=== PATIENT | female | born 1945 | race Hispanic/Latino ===

== ENCOUNTER 2018-09-17 16:06 | Inpatient (IN) | payer MEDICARE ==
[~2018-09-17] VITALS: Ht 162.6 cm; Wt 72.7 kg
[2018-09-17] MEDS ORDERED: SODIUM CHLORIDE 0.9% 1000ML 1,000 ML IV ONE ×4 (16:35→18:50)
[2018-09-17 16:43] LABS: BASOPHILS % (AUTO) 0.1 % (0.0-5.0); HEMATOCRIT 40.1 % (36-48); LYMPHOCYTES % (AUTO) 13.1 % (21.0-51.0); MEAN CORPUSCULAR HEMOGLOBIN 29.8 pg (27.0-33.0); MEAN CORPUSCULAR HGB CONC 33.8 g/dL (32.0-36.0); MEAN CORPUSCULAR VOLUME 88.2 fL (79-99); MONOCYTES % (AUTO) 9.2 % (3.0-13.0); NEUTROPHILS % (AUTO) 77.6 % (40.0-77.0); PLATELET COUNT (AUTO) 329 K/uL (130-400); RED BLOOD CELL COUNT(AUTO) 4.55 MIL/uL (4.00-5.50); RED CELL DISTRIBUTION WIDTH 13.1 % (11.0-15.5); WHITE BLOOD COUNT (AUTO) 11.4 K/uL (4.8-10.8)
[2018-09-17] MEDS ORDERED: SODIUM CHLORIDE 0.9% 100 ML IV ONE (16:48)
[2018-09-17] MEDS ORDERED: DILTIAZEM HCL 125 MG/25 ML VIAL IV ONE (16:48)
[2018-09-17] MEDS ORDERED: IPRATROPIUM/ALBUTEROL SULFATE 3 ML SOLUTION IH ONE (16:51)
[2018-09-17] MEDS ORDERED: CEFTRIAXONE SODIUM 1 GM ONE (16:52)
[2018-09-17] MEDS ORDERED: AZITHROMYCIN 500MG+NS 250ML 250 ML IV ONE (16:52)
[2018-09-17 16:53] LABS: CREATININE 1.3 mg/dL (0.5-1.5); POTASSIUM 5.4 mmol/L (3.5-5.1)
[2018-09-17] MEDS ORDERED: ACETAMINOPHEN 650 MG SUPPOSITORY RC ONE (16:53)
[2018-09-17 16:57] LABS: INR 1.38 (0.85-1.15); PROTHROMBIN TIME 14.4 SEC (9.6-11.6)
[2018-09-17 17:15] LABS: ALBUMIN 2.8 g/dL (3.5-5.0); BILIRUBIN,TOTAL 0.6 mg/dL (0.2-1.0); TOTAL PROTEIN, SERUM 8.1 g/dL (6.0-8.3); TROPONIN I 0.14 ng/mL (0.00-0.06)
[2018-09-17 17:15] LABS: ABG BASE EXCESS -1.5 mmol/L (-2.0-3.0); ABG OXYGEN SATURATION 93.4 % (95.0-99.0); ABG PCO2 30 mmHg (32-45)
[2018-09-17 17:37] LABS: BILIRUBIN,URINE Negative (NEGATIVE); COLOR,URINE Yellow (YELLOW); GLUCOSE, URINE (UA) Negative (NEGATIVE); KETONES,URINE Negative (NEGATIVE); LEUKOCYTE ESTERASE ,URINE Small (NEGATIVE); NITRATE,URINE Negative (NEGATIVE); OCCULT BLOOD,URINE Small (NEGATIVE); PROTEIN,URINE Negative (NEGATIVE)
[2018-09-17 17:43] LABS: APPEARANCE,URINE HAZY (CLEAR)
[2018-09-17] MEDS ORDERED: AMIODARONE HCL 50 MG/ML 3 ML VIAL ONE (17:52)
[2018-09-17] MEDS ORDERED: SODIUM CHLORIDE 0.9% 50 ML IV ONE (17:52)
[2018-09-17] MEDS ORDERED: AMIODARONE HCL 900 MG in DEXTROSE 5%-WATER 500 ML IV SCH (18:00)
[2018-09-17 18:03] LABS: AMORPHOUS SEDIMENT,UR Few /LPF (None Seen); BACTERIA,URINE Few /HPF (None Seen); RBC,URINE None Seen /HPF (0-1)
[2018-09-17] MEDS: SODIUM CHLORIDE 0.9% 1000ML 1,000 ML IV SCH (19:48)
[2018-09-17] MEDS: AZITHROMYCIN 500MG+NS 250ML 250 ML IV SCH (20:00)
[2018-09-17] MEDS ORDERED: ONDANSETRON HCL 4 MG/2 ML VIAL IV PRN (20:00)
[2018-09-17] MEDS: CEFTRIAXONE SODIUM 1 GM IV SCH (20:00)
[2018-09-17] MEDS ORDERED: ACETAMINOPHEN 325 MG TAB PO PRN (20:00)
[2018-09-17] MEDS: ENOXAPARIN SODIUM 30 MG/0.3 ML SQ SCH (21:00)
[2018-09-17] MEDS ORDERED: MORPHINE SULFATE 2 MG/ML 1ML SYG ONE (21:35)
[2018-09-17] MEDS: ALBUTEROL SULFATE 0.083% 2.5 MG/3 ML INH IH SCH (23:25)
[2018-09-18] VITALS (32 sets, daily range): BP systolic 101–142; BP diastolic 65–94
[2018-09-18] MEDS ORDERED: NITROGLYCERIN 0.4 MG SL TAB SL ONE (00:11)
[2018-09-18] MEDS ORDERED: SODIUM CHLORIDE 0.9% 1000ML 1,000 ML IV ONE (00:11)
[2018-09-18] MEDS ORDERED: FAMOTIDINE/PF 20 MG/2 ML VIAL IV ONE (00:12)
[2018-09-18] MEDS ORDERED: ENOXAPARIN SODIUM 30 MG/0.3 ML SQ ONE (00:12)
[2018-09-18] MEDS ORDERED: MORPHINE SULFATE 2 MG/ML 1ML SYG ONE (02:15)
[2018-09-18 06:35] LABS: BASOPHILS % (AUTO) 0.2 % (0.0-5.0); EOSINOPHILS % (AUTO) 0.2 % (0.0-8.0); HEMATOCRIT 32.1 % (36-48); LYMPHOCYTES % (AUTO) 14.3 % (21.0-51.0); MEAN CORPUSCULAR HEMOGLOBIN 29.4 pg (27.0-33.0); MEAN CORPUSCULAR HGB CONC 32.6 g/dL (32.0-36.0); MEAN CORPUSCULAR VOLUME 90.2 fL (79-99); MONOCYTES % (AUTO) 10.2 % (3.0-13.0); NEUTROPHILS % (AUTO) 75.1 % (40.0-77.0); NUCLEATED RED BLOOD CELLS 0.1 % (0.0-0.19); PLATELET COUNT (AUTO) 212 K/uL (130-400); RED BLOOD CELL COUNT(AUTO) 3.56 MIL/uL (4.00-5.50); RED CELL DISTRIBUTION WIDTH 13.4 % (11.0-15.5); WHITE BLOOD COUNT (AUTO) 8.2 K/uL (4.8-10.8)
[2018-09-18] MEDS ORDERED: IPRATROPIUM/ALBUTEROL SULFATE 3 ML SOLUTION IH ONE (06:42)
[2018-09-18] MEDS ORDERED: ALBUTEROL SULFATE 0.083% 2.5 MG/3 ML INH IH ONE (06:51)
[2018-09-18] MEDS: ALBUTEROL SULFATE 0.083% 2.5 MG/3 ML INH IH SCH ×4 (06:51→23:32)
[2018-09-18 07:14] LABS: CRP QUANTITATIVE 177.2 mg/L (0.00-9.0)
[2018-09-18] MEDS: FAMOTIDINE/PF 20 MG/2 ML VIAL IV SCH (09:00)
[2018-09-18] MEDS: ENOXAPARIN SODIUM 30 MG/0.3 ML SQ SCH ×2 (09:00→21:16)
--- NOTE | 2018-09-18 09:00 | NUR ---
PT HAS BEEN ADMITTED AND ON AMIO DRIP PRESCRIBED AND NO FAMILY AROUND TO OBTAIN DATABASE AND HISTORY. MEDS WERE OBTAINED FROM [facility] MEDICATION LIST.
[2018-09-18 09:22] LABS: MAGNESIUM 1.9 mg/dL (1.80-2.40); THYROID STIMULATING HORMONE 1.51 uIU/mL (0.36-3.74)
[2018-09-18] MEDS ORDERED: MAGNESIUM 2GM PREMIX 50ML 50 ML IV ONE (09:47)
[2018-09-18] MEDS ORDERED: TRAM50TA4 PO (11:56)
[2018-09-18] MEDS ORDERED: DIPH25 PO (11:56)
[2018-09-18] MEDS ORDERED: ACET1030H PO (11:56)
[2018-09-18] MEDS ORDERED: ESCI20TA PO (11:56)
[2018-09-18] MEDS ORDERED: MULT-1271 PO (11:56)
[2018-09-18] MEDS ORDERED: FURO20TA6 PO (11:56)
[2018-09-18] MEDS ORDERED: CLON0.5T12 PO (11:56)
[2018-09-18] MEDS ORDERED: FLEC100T3 PO (11:56)
[2018-09-18] MEDS ORDERED: POLY17PO4 PO (11:56)
[2018-09-18] MEDS ORDERED: FERS325 PO (11:56)
[2018-09-18] MEDS ORDERED: ATOR10 PO (11:56)
[2018-09-18] MEDS ORDERED: CLOP75TA32 PO (11:56)
[2018-09-18] MEDS ORDERED: BACL10TA PO (11:56)
[2018-09-18] MEDS ORDERED: PHEN30SP9 MM (11:56)
[2018-09-18] MEDS ORDERED: ASPI-988 PO (11:56)
[2018-09-18] MEDS ORDERED: ADV250 IH ×2 (11:56→15:33)
[2018-09-18] MEDS ORDERED: POTA20TA12 PO (11:56)
[2018-09-18] MEDS ORDERED: LISI-617 PO (11:56)
[2018-09-18] MEDS ORDERED: GABA-531 PO (11:56)
[2018-09-18] MEDS ORDERED: DILTIAZEM HCL 5 MG/ML 5 ML VIAL IVP PRN (12:00)
[2018-09-18] MEDS ORDERED: ACET325T51 PO (15:33)
[2018-09-18] MEDS ORDERED: LACT10SO9 PO (15:33)
[2018-09-18] MEDS ORDERED: SIME80TA12 PO (15:33)
[2018-09-18] MEDS ORDERED: LIDO1ADH48 TP (15:33)
[2018-09-18] MEDS ORDERED: FLUT16H NASAL (15:33)
[2018-09-18] MEDS ORDERED: DOCU-116 PO (15:33)
[2018-09-18] MEDS ORDERED: DICY20 PO (15:33)
[2018-09-18] MEDS ORDERED: BUDE0.5A3 IH (15:33)
[2018-09-18] MEDS ORDERED: ONDA4TAB4 PO (15:33)
[2018-09-18] MEDS ORDERED: ALBU2.5V2 IH (15:33)
[2018-09-18] MEDS ORDERED: NITR0.4T50 SL (15:33)
[2018-09-18] MEDS ORDERED: BISA10S PR (15:33)
[2018-09-18] MEDS: SODIUM CHLORIDE 0.9% 1000ML 1,000 ML IV SCH ×2 (15:48→20:04)
[2018-09-18] MEDS: DILTIAZEM HCL 125 MG/25 ML 125 MG in SODIUM CHLORIDE 0.9% 100 ML IV PRN (16:49)
[2018-09-18] MEDS: MORPHINE SULFATE 2 MG/ML 1ML SYG IV PRN (18:34)
--- NOTE | 2018-09-18 19:33 | NUR ---
ASSESSMENT REPORT RECEIVED FROM MUSTAPHA, PATIENT AWAKE , ALERT ORIENTED X 1, WEAK X 4, CONFUSED AND SUSPICIOUS, THIRSTY AND FREQUENT COUGH, O2 3L NC, GABRIEL 3 MM, PEDAL PULSES WEAK, CARDIZEM A 5 ML/HR INCREASED TO 10 ML/HR, NS AT 100 ML/HR. ASSESSMENT COMPLETED. CALL DARNELL IN REACH.
[2018-09-18] MEDS: AZITHROMYCIN 500MG+NS 250ML 250 ML IV SCH (20:03)
[2018-09-18] MEDS: CEFTRIAXONE SODIUM 1 GM IV SCH (20:04)
[2018-09-18] MEDS: CITALOPRAM 20 MG TABLET PO SCH (21:15)
[2018-09-18] MEDS ORDERED: DILTIAZEM HCL 5 MG/ML 5 ML VIAL IVP SCH (21:15)
[2018-09-18] MEDS ORDERED: PHARMACY COMMUNICATION MISC SCH (21:15)
--- NOTE | 2018-09-18 22:15 | NUR ---
DR Meaghan STEPHENS AT BEDSIDE. NEW ORDERS FOR CARDIZEM 10 MG IV BOLUS GIVEN, DC AMIODARONE, DIURETICS, AND TO INCREASE CARDIZEM TO 15 MG/HR
[2018-09-18] MEDS: CLONAZEPAM 0.5 MG TABLET PO PRN (23:14)
[2018-09-19] VITALS (26 sets, daily range): BP systolic 90–152; BP diastolic 52–93
[2018-09-19] MEDS: GUAIFENESIN-CODEINE 5 ML SYRUP PO PRN ×2 (00:28→03:49)
--- NOTE | 2018-09-19 00:28 | NUR ---
ROBITUSSIN AC GIVEN FOR FREQUENT COUGH PER ORDER SEE EMAR
[2018-09-19] MEDS: DILTIAZEM HCL 125 MG/25 ML 125 MG in SODIUM CHLORIDE 0.9% 100 ML IV PRN (00:57)
[2018-09-19] MEDS ORDERED: PHARMACY COMMUNICATION MISC SCH ×2 (07:30→09:00)
--- NOTE | 2018-09-19 07:43 | NUR ---
DR SNOW MAKES BEDSIDE ROUNDS- ORDERS RECEIVED
[2018-09-19 08:17] LABS: BASOPHILS % (AUTO) 0.3 % (0.0-5.0); HEMATOCRIT 29.9 % (36-48); LYMPHOCYTES % (AUTO) 16.7 % (21.0-51.0); MEAN CORPUSCULAR HEMOGLOBIN 29.2 pg (27.0-33.0); MEAN CORPUSCULAR HGB CONC 32.8 g/dL (32.0-36.0); MEAN CORPUSCULAR VOLUME 89.1 fL (79-99); MONOCYTES % (AUTO) 8.3 % (3.0-13.0); NEUTROPHILS % (AUTO) 73.7 % (40.0-77.0); PLATELET COUNT (AUTO) 192 K/uL (130-400); RED BLOOD CELL COUNT(AUTO) 3.35 MIL/uL (4.00-5.50); RED CELL DISTRIBUTION WIDTH 13.1 % (11.0-15.5); WHITE BLOOD COUNT (AUTO) 7.6 K/uL (4.8-10.8)
[2018-09-19] MEDS ORDERED: FLECAINIDE ACETATE 100 MG TABLET PO PRN (08:30)
[2018-09-19 08:36] LABS: CREATININE 0.7 mg/dL (0.5-1.5); POTASSIUM 3.1 mmol/L (3.5-5.1)
[2018-09-19] MEDS ORDERED: MEROPENEM 500 MG VIAL IVP SCH (08:45)
[2018-09-19] MEDS ORDERED: RENAL DOSE IV SCH (08:45)
[2018-09-19] MEDS: DILTIAZEM HCL 60 MG TABLET PO SCH ×4 (08:50→20:19)
[2018-09-19] MEDS: FAMOTIDINE/PF 20 MG/2 ML VIAL IV SCH (08:51)
[2018-09-19] MEDS: ENOXAPARIN SODIUM 30 MG/0.3 ML SQ SCH ×2 (08:52→09:00)
[2018-09-19] MEDS ORDERED: ZOSYN 3.375GM+NS 50ML 50 ML IV SCH (09:00)
--- NOTE | 2018-09-19 09:14 | NUR ---
PT REFUSES LOVENOX AND CARDIZEM PO. I HAVE EXPLAINED TO HER RATIONALE AND SIDE EFFECTS- SHE WILL NOT ALLOW ME TO GIVE HER THESE 2 MEDS. WILL LET MD KNOW ON ROUNDS. PT NON-COMPLIANT
--- NOTE | 2018-09-19 09:24 | NUR ---
DR ERNANDEZ INFORMED OF PATIENTS REFUSAL TO TAKE MEDS. ALSO INFORMED OF LOW POTASSIUM OF 3.1. ORDERS RECEIVED. 1ST DOSE OF ZOSYN IS INFUSING - I HAVE CLARIFIED ORDERS WITH PHARMACIST. I HAD SCANNED ZOSYN PRIOR TO ADMINISTRATION BUT IT DID NOT STORE IT. ORDER RE-ENTERED .
[2018-09-19] MEDS: ZOSYN 3.375GM+NS 50ML 50 ML IV SCH ×2 (09:26→17:48)
[2018-09-19] MEDS ORDERED: POTASSIUM CHLORIDE 20MEQ/100ML 100 ML IV PRN (09:30)
[2018-09-19] MEDS ORDERED: POTASSIUM CHLORIDE 20 MEQ ERTAB PO PRN (09:30)
[2018-09-19] MEDS ORDERED: LIDOCAINE HCL-MPF 1% 2ML VIAL IVP PRN (09:30)
[2018-09-19] MEDS: POTASSIUM CHLORIDE 10% ELIXIR 20 MEQ/15 ML UDCUP PO PRN (13:39)
--- NOTE | 2018-09-19 15:11 | NUR ---
NO ACUTE CHANGES NOTED-NO PAIN NOTED. HAS HAD VISITS BY HER DAUGHTER AND SON TODAY. REPOSITIONED . ORAL CARE DONE. DRESSING TO SACRUM DONE DIRECTED BY WOUND CARE TEAM (LAUREEN/PRADEEP)
--- NOTE | 2018-09-19 16:21 | NUR ---
PT GUARDIANTONIO SONI HERE TO VISIT- UPDATED ON CONDITION AND PLAN OF CARE
[2018-09-19] MEDS: CITALOPRAM 20 MG TABLET PO SCH (20:19)
[2018-09-19] MEDS: ATORVASTATIN CALCIUM 10 MG TABLET PO SCH (20:19)
[2018-09-19] MEDS: ACETAMINOPHEN 325 MG TAB PO PRN (20:20)
[2018-09-20] VITALS (18 sets, daily range): BP systolic 98–137; BP diastolic 54–83
[2018-09-20] MEDS: ZOSYN 3.375GM+NS 50ML 50 ML IV SCH ×3 (01:01→17:57)
[2018-09-20] MEDS: GUAIFENESIN-CODEINE 5 ML SYRUP PO PRN (02:52)
[2018-09-20] MEDS: DILTIAZEM HCL 60 MG TABLET PO SCH (02:52)
[2018-09-20 03:49] LABS: HEMATOCRIT 31.5 % (36-48); MEAN CORPUSCULAR HEMOGLOBIN 29.2 pg (27.0-33.0); MEAN CORPUSCULAR HGB CONC 32.8 g/dL (32.0-36.0); MEAN CORPUSCULAR VOLUME 88.8 fL (79-99); PLATELET COUNT (AUTO) 193 K/uL (130-400); RED BLOOD CELL COUNT(AUTO) 3.55 MIL/uL (4.00-5.50); RED CELL DISTRIBUTION WIDTH 13.1 % (11.0-15.5); WHITE BLOOD COUNT (AUTO) 7.8 K/uL (4.8-10.8)
[2018-09-20 04:03] LABS: CREATININE 0.7 mg/dL (0.5-1.5); MAGNESIUM 1.9 mg/dL (1.80-2.40); PHOSPHORUS 2.4 mg/dL (2.5-4.9); POTASSIUM 3.3 mmol/L (3.5-5.1)
[2018-09-20] MEDS: ACETAMINOPHEN 325 MG TAB PO PRN ×2 (05:31→14:14)
[2018-09-20] MEDS: POTASSIUM CHLORIDE 10% ELIXIR 20 MEQ/15 ML UDCUP PO PRN ×3 (05:32→14:15)
--- NOTE | 2018-09-20 06:14 | NUR ---
PATIENT WITH FREQUENT COUGH REQUESTING BREATHING TREATMENT, R.T NOTIFIED.
[2018-09-20] MEDS: IPRATROPIUM 0.5 MG/2.5 ML INH IH PRN ×3 (06:21→23:14)
[2018-09-20] MEDS: FAMOTIDINE/PF 20 MG/2 ML VIAL IV SCH (08:52)
[2018-09-20] MEDS: NEUTRA-PHOS PACKET 1 EACH PO SCH ×4 (08:53→20:14)
[2018-09-20] MEDS: ENOXAPARIN SODIUM 30 MG/0.3 ML SQ SCH (08:54)
[2018-09-20] MEDS ORDERED: DILTIAZEM HCL 180 MG CAP.SR.24H PO SCH (09:00)
[2018-09-20] MEDS: DILTIAZEM HCL 120 MG CAP.SR.24H PO SCH (09:00)
[2018-09-20] MEDS ORDERED: SODIUM CHLORIDE 3% FOR INHALATION 4 ML/AMP VIAL.NEB IH ONE ×3 (10:40→22:52)
[2018-09-20] MEDS ORDERED: MAGNESIUM 2GM PREMIX 50ML 50 ML IV ONE (14:13)
[2018-09-20] MEDS ORDERED: MAGNESIUM SULFATE 2 GM in SODIUM CHLORIDE 0.9% 50 ML IV SCH (14:15)
[2018-09-20] MEDS ORDERED: MAGNESIUM 2GM PREMIX 50ML 50 ML IV PRN (14:30)
--- NOTE | 2018-09-20 14:30 | NUR ---
REPORT GIVEN TO BENJAMIN LARA AND PATIENT MOVED TO RM 206 AT THIS TIME
--- NOTE | 2018-09-20 16:01 | NUR ---
DC PLAN PATIENT TRANSFERRED OUT OF ICU. PATIENT FROM [facility]. ATTEMPTED TO CALL EMERGENCY CONTACT, VIRI SONI AT [phone], NO ANSWER. CM TO REVISIT. CD Addendum: 09/20/18 at 1602 by FABY GIBOSN CM Amended: Links added.
[2018-09-20] MEDS: MORPHINE SULFATE 2 MG/ML 1ML SYG IV PRN ×2 (19:43→23:28)
[2018-09-20] MEDS: ATORVASTATIN CALCIUM 10 MG TABLET PO SCH (20:13)
[2018-09-20] MEDS: CITALOPRAM 20 MG TABLET PO SCH (20:13)
[2018-09-21] MEDS: ZOSYN 3.375GM+NS 50ML 50 ML IV SCH ×3 (01:21→19:45)
[2018-09-21 03:00] VITALS: BP 131/88
[2018-09-21 03:52] LABS: HEMATOCRIT 30.9 % (36-48); MEAN CORPUSCULAR HEMOGLOBIN 29.2 pg (27.0-33.0); MEAN CORPUSCULAR HGB CONC 32.9 g/dL (32.0-36.0); MEAN CORPUSCULAR VOLUME 88.6 fL (79-99); PLATELET COUNT (AUTO) 209 K/uL (130-400); RED BLOOD CELL COUNT(AUTO) 3.49 MIL/uL (4.00-5.50); RED CELL DISTRIBUTION WIDTH 13.5 % (11.0-15.5); WHITE BLOOD COUNT (AUTO) 7.3 K/uL (4.8-10.8)
[2018-09-21 04:04] LABS: ALBUMIN 1.7 g/dL (3.5-5.0); CREATININE 0.6 mg/dL (0.5-1.5); MAGNESIUM 1.8 mg/dL (1.80-2.40); PHOSPHORUS 2.8 mg/dL (2.5-4.9); POTASSIUM 3.6 mmol/L (3.5-5.1)
[2018-09-21 04:06] LABS: B-TYPE NATRIURETIC PEPTIDE 366 pg/mL (0-100)
[2018-09-21] MEDS: MORPHINE SULFATE 2 MG/ML 1ML SYG IV PRN ×3 (05:23→21:25)
[2018-09-21] MEDS: CLONAZEPAM 0.5 MG TABLET PO PRN (05:39)
[2018-09-21] MEDS ORDERED: SODIUM CHLORIDE 3% FOR INHALATION 4 ML/AMP VIAL.NEB IH ONE (06:09)
[2018-09-21] MEDS: IPRATROPIUM 0.5 MG/2.5 ML INH IH PRN (06:17)
[2018-09-21 07:11] VITALS: BP 139/95
--- NOTE | 2018-09-21 09:00 | NUR ---
TEACHING: PT NOT APPROPRIATE TO CONVERSATION - TALKING TO HERSELF WHEN NURSE ENTERED ROOM ABOUT THINGS THAT DO NOT APPLY TO HOSPITALIZATION - QUESTION ORIENTATION. DEFIANT TO ALL CARE AND ANGRY AT STAFF NO MATTER HOW WE TRY TO HELP HER. TEACHING ATTEMPTS FAIL.
--- NOTE | 2018-09-21 09:00 | NUR ---
ASSESS: RESISTANT TO CARE - WILL NOT LET NURSE CHECK FEET OR TAKE OFF SOCKS, WILL NOT LET NURSE CHECK PUPILS - MOANS AND GROANS WHEN TOUCHED BUT DOES NOT SPECIFY WHERE THE PAIN IS OR THE SCALE SHE WOULD RATE IT. YELLS OUT WHEN ASSISTED TO TURN TO CHECK DIAPER OR SKIN ON BACK. REFUSES LOVENOX, REFUSES MEGACE AND ONLY TOOK CARDIZEM BC NURSE TOLD HER HER HR WAS FAST AND IT WOULD HELP HER HEART.
[2018-09-21] MEDS: MEGESTROL 400 MG/10 ML UDCUP PO SCH ×2 (10:30→10:31)
[2018-09-21] MEDS: ENOXAPARIN SODIUM 30 MG/0.3 ML SQ SCH ×2 (10:30→10:32)
[2018-09-21] MEDS: NEUTRA-PHOS PACKET 1 EACH PO SCH ×2 (10:31→15:16)
[2018-09-21] MEDS: FAMOTIDINE/PF 20 MG/2 ML VIAL IV SCH (10:31)
[2018-09-21] MEDS: DILTIAZEM HCL 120 MG CAP.SR.24H PO SCH (10:31)
[2018-09-21 10:55] VITALS: BP 149/96
[2018-09-21] MEDS: IPRATROPIUM 0.5 MG/2.5 ML INH IH SCH ×3 (11:13→23:12)
--- NOTE | 2018-09-21 12:35 | NUR ---
Nutrition Intervention: Nutrition screen due to Alb 1.7. Pt. admitted with Dx of Sepsis, Pneumonia, A. Fib with RVR. Pt. on Heart healthy diet with good p.o. intake this morning, as per nursing and EMR. Per EMR, pt's p.o. intake varies(25-75%). Pt. on appetite stimulant Megace. Labs reviewed(Alb 1.7). LBM: 09/21/18. SR-14, loose. BMI: 28.2, normal for age. Recommendations: 1) Continue current diet. 2) Rec. Ensure Enlive supp. BID with B'fast and dinner meals. 3) Continue to monitor pt's nutritional status. 4) Consult RD as nutrition concerns arise. Addendum: 09/21/18 at [address] Amended: Links added.
[2018-09-21] MEDS ORDERED: NEUTRA-PHOS PACKET 1 EACH ONE (15:15)
[2018-09-21 16:00] VITALS: BP 153/84
[2018-09-21 19:27] VITALS: BP 148/78
[2018-09-21] MEDS: ATORVASTATIN CALCIUM 10 MG TABLET PO SCH (21:23)
[2018-09-21] MEDS: CITALOPRAM 20 MG TABLET PO SCH (21:23)
[2018-09-21 23:00] VITALS: BP 152/85
[2018-09-22] MEDS: ZOSYN 3.375GM+NS 50ML 50 ML IV SCH ×3 (02:26→17:01)
[2018-09-22 03:00] VITALS: BP_SYST 145; BP_SYST 152; BP_DIAS 70; BP_DIAS 85
[2018-09-22] MEDS: MORPHINE SULFATE 2 MG/ML 1ML SYG IV PRN (04:48)
[2018-09-22] MEDS: IPRATROPIUM 0.5 MG/2.5 ML INH IH SCH ×4 (04:58→23:23)
[2018-09-22 05:32] LABS: HEMATOCRIT 33.8 % (36-48); MEAN CORPUSCULAR HEMOGLOBIN 28.9 pg (27.0-33.0); MEAN CORPUSCULAR HGB CONC 31.7 g/dL (32.0-36.0); MEAN CORPUSCULAR VOLUME 91.2 fL (79-99); NUCLEATED RED BLOOD CELLS 0.1 % (0.0-0.19); PLATELET COUNT (AUTO) 226 K/uL (130-400); RED BLOOD CELL COUNT(AUTO) 3.71 MIL/uL (4.00-5.50); RED CELL DISTRIBUTION WIDTH 13.6 % (11.0-15.5); WHITE BLOOD COUNT (AUTO) 5.8 K/uL (4.8-10.8)
[2018-09-22 05:40] LABS: CREATININE 0.8 mg/dL (0.5-1.5); MAGNESIUM 2.1 mg/dL (1.80-2.40); POTASSIUM 3.4 mmol/L (3.5-5.1)
[2018-09-22 05:49] LABS: BAND NEUTROPHILS % (MANUAL) 2 % (0-2); EOSINOPHILS % (MANUAL) 4 % (1-6); LYMPHOCYTES % (MANUAL) 29 % (22-44); MONOCYTES % (MANUAL) 5 % (2-9); SEGMENTED NEUTROPHILS % 60 % (40-70)
[2018-09-22 05:50] LABS: MAN.DIFF COMMENT-IMPRESSION MANUAL DIFFERENTIAL; PLATELET MORPHOLOGY COMMENT ADEQUATE
[2018-09-22 07:46] VITALS: BP 129/59
[2018-09-22] MEDS: FAMOTIDINE/PF 20 MG/2 ML VIAL IV SCH (09:59)
[2018-09-22] MEDS: DILTIAZEM HCL 120 MG CAP.SR.24H PO SCH (09:59)
[2018-09-22 11:14] VITALS: BP 142/83
[2018-09-22] MEDS ORDERED: METHYLPREDNISOLONE SOD SUCC 125MG/2ML VIAL IVP SCH (12:30)
[2018-09-22] MEDS ORDERED: METHYLPREDNISOLONE SOD SUCC 125MG/2ML VIAL IM SCH (12:30)
[2018-09-22] MEDS: FUROSEMIDE 10 MG/ML 2ML VIAL IV SCH (13:19)
[2018-09-22] MEDS ORDERED: MORPHINE SULFATE 2 MG/ML 1ML SYG IV PRN (16:00)
[2018-09-22 16:05] VITALS: BP 125/66
[2018-09-22 19:00] VITALS: BP 120/81
[2018-09-22] MEDS: CITALOPRAM 20 MG TABLET PO SCH (20:58)
[2018-09-22] MEDS: ATORVASTATIN CALCIUM 10 MG TABLET PO SCH (20:58)
[2018-09-22 23:00] VITALS: BP 145/80
[2018-09-23] MEDS: CLONAZEPAM 0.5 MG TABLET PO PRN (01:10)
[2018-09-23] MEDS: FUROSEMIDE 10 MG/ML 2ML VIAL IV SCH ×2 (01:10→09:26)
[2018-09-23] MEDS: POTASSIUM CHLORIDE 10% ELIXIR 20 MEQ/15 ML UDCUP PO PRN (01:11)
[2018-09-23] MEDS: ZOSYN 3.375GM+NS 50ML 50 ML IV SCH ×3 (01:11→17:30)
[2018-09-23 03:00] VITALS: BP 148/77
[2018-09-23] MEDS: IPRATROPIUM 0.5 MG/2.5 ML INH IH SCH ×3 (06:25→17:52)
[2018-09-23 06:45] LABS: BASOPHILS % (AUTO) 0.4 % (0.0-5.0); EOSINOPHILS % (AUTO) 2.5 % (0.0-8.0); HEMATOCRIT 33.8 % (36-48); LYMPHOCYTES % (AUTO) 28.6 % (21.0-51.0); MEAN CORPUSCULAR HEMOGLOBIN 29.1 pg (27.0-33.0); MEAN CORPUSCULAR HGB CONC 32.6 g/dL (32.0-36.0); MEAN CORPUSCULAR VOLUME 89.3 fL (79-99); MONOCYTES % (AUTO) 10.4 % (3.0-13.0); NEUTROPHILS % (AUTO) 58.1 % (40.0-77.0); PLATELET COUNT (AUTO) 272 K/uL (130-400); RED BLOOD CELL COUNT(AUTO) 3.78 MIL/uL (4.00-5.50); RED CELL DISTRIBUTION WIDTH 13.2 % (11.0-15.5); WHITE BLOOD COUNT (AUTO) 5.7 K/uL (4.8-10.8)
[2018-09-23 07:01] LABS: CREATININE 0.8 mg/dL (0.5-1.5); POTASSIUM 3.5 mmol/L (3.5-5.1)
[2018-09-23 07:08] VITALS: BP 133/86
[2018-09-23] MEDS: DILTIAZEM HCL 120 MG CAP.SR.24H PO SCH (09:26)
[2018-09-23] MEDS: ENOXAPARIN SODIUM 30 MG/0.3 ML SQ SCH (09:26)
[2018-09-23] MEDS: FAMOTIDINE/PF 20 MG/2 ML VIAL IV SCH (09:26)
[2018-09-23] MEDS: MEGESTROL 400 MG/10 ML UDCUP PO SCH (09:26)
[2018-09-23 11:12] VITALS: BP 126/67
[2018-09-23 15:55] VITALS: BP 111/53
--- NOTE | 2018-09-23 17:41 | NUR ---
CALLED REPORT TO [facility]. CALLED AMBULANCE FOR COLD ROLLING COORDINATOR.
--- NOTE | 2018-09-23 19:48 | NUR ---
TRANSFER EMS PATIENT LYING IN BED BREATHING REGULAR ON 2L NASAL CANNULA. NO SIGNS OR SYMPTOMS OF DISTRESS. DENIES ACUTE PAIN. EMS ARRIVAL FOR TRANSFER TO [facility]. TRANSFERRED TO [facility]. EMS TO TRANSPORT.
== END 2018-09-23 19:45 | DRG 871 ==
LOC: EDH 16:06 → OBSVTOIN 19:00 → EDHIP 19:00 → 2CH 09-18 08:20 → 2BH 09-20 14:15
PROVIDERS: ADMIT Internal Medicine; ATTEND Internal Medicine
DX: A41.51 Sepsis due to Escherichia coli [E. coli] (principal); J18.9 Pneumonia, unspecified organism; G93.41 Metabolic encephalopathy; I50.33 Acute on chronic diastolic (congestive) heart failure; J44.0 Chronic obstructive pulmonary disease with (acute) lower respiratory infection; I48.92 Unspecified atrial flutter; I42.1 Obstructive hypertrophic cardiomyopathy; J44.1 Chronic obstructive pulmonary disease with (acute) exacerbation; N30.00 Acute cystitis without hematuria; F25.9 Schizoaffective disorder, unspecified; D64.9 Anemia, unspecified; E66.9 Obesity, unspecified; E78.5 Hyperlipidemia, unspecified; E83.39 Other disorders of phosphorus metabolism; E86.1 Hypovolemia; E87.6 Hypokalemia; F41.8 Other specified anxiety disorders; G20 Parkinson's disease; I11.0 Hypertensive heart disease with heart failure; I25.10 Atherosclerotic heart disease of native coronary artery without angina pectoris; I48.0 Paroxysmal atrial fibrillation; K21.9 Gastro-esophageal reflux disease without esophagitis; R09.02 Hypoxemia; R65.20 Severe sepsis without septic shock; Y95 Nosocomial condition; Z16.12 Extended spectrum beta lactamase (ESBL) resistance; Z16.24 Resistance to multiple antibiotics; Z74.01 Bed confinement status; Z87.891 Personal history of nicotine dependence; Z88.0 Allergy status to penicillin; Z91.19 Patient's noncompliance with other medical treatment and regimen; Z91.5 Personal history of self-harm; Z95.0 Presence of cardiac pacemaker; Z88.8 Allergy status to other drugs, medicaments and biological substances; Z88.1 Allergy status to other antibiotic agents; Z91.040 Latex allergy status
CPT/HCPCS: 36415; 36600; 71045; 80048; 80053; 81001; 82040; 82550; 82803; 83605; 83735; 83874; 83880; 84100; 84132; 84443; 84484; 85025; 85027; 85610; 85730; 86140; 87040; 87077; 87088; 87186; 93005; 93306; 94640; 94664; 94667; 94668; 97039; 99291; G0378; J0282; J0456; J0696; J1650; J1940; J2543; J2930; J3475; J3480; J3490; J7030; J7060